=== PATIENT | male | born 1960 | race Caucasian/White ===

== ENCOUNTER → 2024-01-22 06:42 | Outpatient (REF) | payer MEDICARE, OTHER, SELFPAY ==
[2024-01-22 08:23] LABS: HDL Cholesterol 51 mg/dl; LDL Cholesterol, Calculated 70 mg/dl; Total Cholesterol 141 mg/dl (50-199); Triglyceride 100 mg/dl (10-149); Very Low Density Lipoprotein 20 mg/dl (0-30)
[2024-01-22 08:52] LABS: Glycohemoglobin (HgbA1c) 5.9 % (4.0-5.6)
[2024-01-22 08:54] LABS: PSA, Total - Screen 1.82 ng/ml (0.0-4.0)
== END ==
LOC: REG 06:42
PROVIDERS: ATTENDING PHYSICIAN Psychiatry & Neurology Geriatric Psychiatry
DX: Z12.5 Encounter for screening for malignant neoplasm of prostate (principal); E11.65 Type 2 diabetes mellitus with hyperglycemia; E78.2 Mixed hyperlipidemia
CPT/HCPCS: 36415; 80061; 83036; G0103